=== PATIENT | female | born 1995 | race Caucasian/White ===

== ENCOUNTER 2018-07-14 16:41 | Emergency (ER) | payer OTHER ==
[2018-07-14] MEDS ORDERED: MULTI VITAMINS1 TAB PO (17:12)
[2018-07-14 18:14] VITALS: BP 111/83; PULSE 76; TEMP 99
== END 2018-07-14 18:23 | disposition home or self-care (01) ==
LOC: COL.ER 16:41
DX: R10.9 Unspecified abdominal pain (principal)

== ENCOUNTER → 2018-07-14 | Outpatient (CLI) | payer OTHER ==
[~2018-07-14] MED LIST: MULTI VITAMINS1 TAB PO
== END ==
LOC: COL.RAD 15:43
DX: R93.5 Abnormal findings on diagnostic imaging of other abdominal regions, including retroperitoneum (principal); R10.2 Pelvic and perineal pain; D72.829 Elevated white blood cell count, unspecified